=== PATIENT | female | born 1940 | race Caucasian/White ===

== ENCOUNTER 2024-02-02 07:15 | Day surgery (SDC) | payer OTHER, SELFPAY ==
[2024-01-22 10:39] VITALS: BMI 31.9
[2024-02-02] VITALS (12 sets, daily range): BP systolic 141–179; BP diastolic 61–95; BMI 47.4; BMI 31.5
[2024-02-02] MEDS: NSS 500 IV (07:58)
--- NOTE | 2024-02-02 11:11 | ITS.CL.IMPLP ---
Melt Helper - Implant Loop
Implant Loop
Procedure Report:
Date of Procedure: February 02, 2024.
Procedure: Insertable Loop Recorder Explant.
Indication: Loop at the end of service.
Performing physician: Wilian Lambert MD, [facility].
Explant (implanted 08/12/2022): [employer]; [employer], Model# [id number]; Serial# [id number].
Technique: A time out was performed per protocol. The patient was prepped and draped in the usual fashion. Anesthesia was administered by the anesthesia staff. Local anesthetic was applied to the left prepectoral subcutaneous tissue. An incision
was made over the superior aspect of the device. Dissection was carried to the capsule. The capsule was entered. The old device was explanted. The pocket appeared normal. Hemostasis was excellent. The pocket was irrigated saline. The incision was
closed with 4-0 Monocryl suture. The skin was closed with steri-strips. The estimated blood loss was less than 0.5 mL. There were no complications. No fluoroscopy was used.
Conclusion: Uncomplicated insertable loop explantation.
Recommendation: Routine incision care.
cc: Anjel Vásquez MD and Cesar Hidalgo DO.
[2024-02-02] MEDS: TYLENOL 650 MG PO (11:52)
== END 2024-02-02 12:05 | disposition home or self-care (01) ==
LOC: CATH 07:15
PROVIDERS: ATTENDING PHYSICIAN Internal Medicine Cardiovascular Disease; FAMILY PHYSICIAN Family Medicine; OTHER PHYSICIAN Internal Medicine Cardiovascular Disease
DX: Z09 Encounter for follow-up examination after completed treatment for conditions other than malignant neoplasm (principal); I48.0 Paroxysmal atrial fibrillation; I34.0 Nonrheumatic mitral (valve) insufficiency; I10 Essential (primary) hypertension; K21.9 Gastro-esophageal reflux disease without esophagitis; K76.0 Fatty (change of) liver, not elsewhere classified; M06.9 Rheumatoid arthritis, unspecified; Z87.891 Personal history of nicotine dependence; Z86.73 Personal history of transient ischemic attack (TIA), and cerebral infarction without residual deficits; Z79.01 Long term (current) use of anticoagulants
CPT/HCPCS: 33286; 93005

== ENCOUNTER → 2024-05-02 11:52 | Outpatient (REF) | payer OTHER, SELFPAY | LOC: HWRAD 11:52 | PROVIDERS: ATTENDING PHYSICIAN Internal Medicine Rheumatology; FAMILY PHYSICIAN Family Medicine | DX: M06.09 Rheumatoid arthritis without rheumatoid factor, multiple sites (principal) | CPT/HCPCS: 73030 ==

== ENCOUNTER → 2024-11-27 11:35 | Emergency (ER) | payer OTHER, SELFPAY ==
[2024-11-27 11:38] VITALS: BMI 32.6
[2024-11-27 12:00] VITALS: BP 146/62
[2024-11-27 12:02] LABS: % Basophils 0.7 % (0-2); % Eosinophils 1.2 % (0-6); % Immature Granulocytes 0.3 % (0-0.5); % Lymphocytes 12.7 % (20.5-51.1); % Monocytes 10.3 % (1.7-9.3); % Neutrophils 74.8 % (42.2-75.2); Absolute Basophils 0.1 10^3/uL (0-0.2); Absolute Eosinophils 0.1 10^3/uL (0-0.7); Absolute Lymphocytes 1.5 10^3/uL (1.2-3.4); Absolute Monocytes 1.2 10^3/uL (0.1-0.6); Absolute Neutrophils 8.6 10^3/uL (1.4-6.5); Hematocrit 37.3 % (37.0-47.0); Hemoglobin 12.1 g/dL (12.0-16.0); Mean Corp Hgb Conc. 32.4 g/dL (33.0-37.0); Mean Corpuscular Hgb 28.3 pg (27.0-31.0); Mean Corpuscular Volume 87.1 fL (81.0-99.0); Mean Platelet Volume 9.4 fL (7.4-10.4); Nucleated Red Blood Cells % 0 %; Platelet Count 353 10^3/uL (130-400); Red Blood Cell Count 4.28 10^6/uL (4.20-5.40); Red Cell Dist. Width 14.1 % (11.5-14.5); White Blood Cell Count 11.5 10^3/uL (4.8-10.8)
[2024-11-27 12:37] LABS: ALT (SGPT) 13 U/L (0-35); AST (SGOT) 16 U/L (14-36); Alkaline Phosphatase 102 U/L (38-126); Blood Urea Nitrogen 26 mg/dl (7-17); Carbon Dioxide 21 mmol/L (22-30); Chloride 105 mmol/L (98-107); Estimated Creatinine Clearance 47 ml/min; Glucose 137 mg/dl (70-99); Potassium 3.8 mmol/L (3.5-5.1); Sodium 138 mmol/L (135-145); Total Bilirubin 0.7 mg/dl (0.2-1.3); Total Protein 6.6 g/dl (6.3-8.2); eGFR > 60.00
--- NOTE | 2024-11-27 12:44 | ED.GENMED ---
History of Present Illness
General
Chief Complaint: Abdominal Symptoms
Source: patient
Exam Limitations: none
Time Seen by Provider: 11/27/24 11:42
Nursing documentation reviewed up to this point in time: agreed with
History of Present Illness
History of Present Illness:
The patient reports 2 days of lower abdominal pain and intermittent diarrhea. Additionally, she has had nausea and vomiting yesterday but not today. She denies fever. Patient reports she was evaluated by her primary care doctor yesterday to
discuss this abdominal pain and diarrhea and she was encouraged to follow-up with her GI doctor. Patient reports she was at a routine cardiology appointment today and her pure pak machine operator encouraged her to go to the emergency department for possible
dehydration.
Past History
Past History
ED Past Medical History: HTN
ED Past Surgical History: Appendectomy, Gynecological (Tubal) and Orthopedic (His surgery x3)
Social History
Tobacco: Non-smoker
Alcohol: None
Drug: None
Personal:
Living: with family
Employment: Retired
Family History
Family History: Other (Noncontributory)
Review of Systems
Review of Systems
Allergies reviewed?: Yes
All Other Systems: ROS reviewed and negative except as documented in HPI and ROS
Constitutional: Reports no symptoms
EENT: Reports no symptoms
Respiratory: Reports no symptoms
Cardiac: Reports no symptoms
ABD/GI: Reports abdominal pain, nausea, vomiting, diarrhea and pain
: Reports no symptoms
Musculoskeletal: Reports no symptoms
Skin: Reports no symptoms
Neurological: Reports no symptoms
Endocrine: Reports no symptoms
Hematologic/Lymphatic: Reports no symptoms
Psychiatric: Reports no symptoms
Phy Exam
Physical Exam
Physical Exam:
Physical Exam
General: no apparent distress, not acutely ill
Neck: supple. no meningeal signs. normal psoterior pharynx
Heart: s1/s2 regular rate and rhythm, no murmur. equal radial pulses.
Lungs: no acute respiratory distress. clear bilaterally
Abdomen: Soft, nondistended. Mild lower abdominal tenderness. No rebound or guarding. No pulsatile mass. No flank tenderness bilaterally
Neuro: alert and oriented. no focal neurological deficits
Skin: no rash
Psychiatric: well kept. interactive and cooperative
Extremities: no edema. no calf tenderness. negative homans. good distal pulses
Course
Orders/Labs/Results
Orders:
Orders
11/27/24 11:51
CMP [Comprehensive Metabolic Panel] Urgent
Complete Blood Count/With Diff Urgent
11/27/24 12:55
CT Abd/pelvis W Iv Cont Urgent
Comment:
Reason For Exam: lower abdominal pain
11/27/24 13:07
Urinalysis Reflex To Culture Urgent
Date Specimen was Collected: 11/27/24
Time Specimen was Collected: 13:06
Urine Microscopic Reflex Cult Urgent
Urine Culture Urgent
CHAO Source: U
Specimen Description:
Date Specimen was Collected: 11/27/24
Time Specimen was Collected: 13:06
11/27/24 14:01
0.9% Sodium Chloride 500 ml [Nss] 500 ml IV BOLUS
11/27/24 16:07
Sulfamethox./Trimethoprim Ds [Bactrim Ds 800 mg/160 mg] 1 tablet PO NOW STA
Abnormal Lab Results
11/27/24 11/27/24
11:51 13:07
WBC 11.5 H 10^3/uL
(4.8-10.8)
MCHC 32.4 L g/dL
(33.0-37.0)
Absolute Neuts (auto) 8.6 H 10^3/uL
(1.4-6.5)
Absolute Monos (auto) 1.2 H 10^3/uL
(0.1-0.6)
Lymphocytes % 12.7 L %
(20.5-51.1)
Monocytes % 10.3 H %
(1.7-9.3)
Carbon Dioxide 21 L mmol/L
(22-30)
BUN 26 H mg/dl
(7-17)
Glucose 137 H mg/dl
(70-99)
Urine Ketones 1+ A
(Negative)
Urine Bilirubin 1+ A
(Negative)
Leukocyte Esterase Rfl 3+ A
(Negative)
Urine Bacteria (Reflex) Many A
(Negative)
Urine Albumin (Reflex) 3+ A
(Neg - Trace)
11/27/24 11:51
11/27/24 11:51
Vital Signs
Initial and Last Documented VS:
Initial Vital Signs
Pulse Resp Pulse Ox
63 15 98
11/27/24 11:49 11/27/24 11:49 11/27/24 11:49
Last Documented Vital Signs
Pulse Resp BP Pulse Ox
66 14 154/72 87
11/27/24 15:00 11/27/24 15:00 11/27/24 15:00 11/27/24 15:00
MDM/Problems Addressed
Differential Diagnosis Includes:
Acute diverticulitis, acute gastroenteritis, UTI
MDM/Problems Addressed:
Patient presents with acute abdominal pain, diarrhea, nausea, vomiting
Chronic conditions affecting care: HTN
Acute Exacerbation and/or Progression of Chronic Illness:
Patient is acutely hypertensive, however, she is anxious and I feel this is contributing.
Acute Exacerbation and/or Progression of Chronic Illness: HTN
*Radiology
Radiology exam reviewed: radiology read reviewed
*Pulse Oximetry
Patient hypoxic: no
*EKG
Interpreted by ED Provider?: NA
*Audience Development Manager Interpretation
Rate: Audience Development Manager- N/A
*Critical Care Note
Total Time (30-74mins, 75-104mins- exclusive of procedures): Not Applicable
Data Reviewed
Review of Other/Old Records Reveals: Discharge Summary (Discharge summary reviewed from 01/2024 when patient was admitted for presyncope and lightheadedness)
Source: patient
Update Note
Update Note:
Patient remains very well and comfortable appearing. She has not had any nausea, vomiting or diarrhea in the ED.
Patient's urine looks suspicious for UTI. Given she has mild lower abdominal pain, decision made to treat given the symptoms.
ED Attending Note
-
Portions of this chart may have been created with voice recognition software.� Occasional wrong word or��sound alike� substitutions may have occurred due to the inherent limitations of voice recognition software.
Discharge Plan
Departure
Patient Disposition: Home (Routine Discharge)
Date of Disposition: 11/27/24
Time of Disposition: 16:08
Patient with high blood pressure during this ER visit?: Yes
Condition: Good
Covid-19: Not Applicable
Discharge Problem:
Acute UTI
Instructions: Urinary tract infections in adults, BLOOD PRESSURE
Prescriptions:
New
sulfamethoxazole-trimethoprim [Bactrim DS] 800-160 mg tablet
1 tab PO BID Qty: 10 0RF
No Action
leflunomide 20 mg Tablet
20 mg PO DAILY Qty: 0
duloxetine 30 mg Capsule,Delayed Release(Dr/Ec)
30 mg PO DAILY
amlodipine 10 mg Tablet
10 mg PO DAILY
latanoprost 0.005 % drops
1 drp BOTH EYES HS
labetalol 100 mg tablet
100 mg PO BID
therapeutic multivitamin Tablet
1 tab PO DAILY
calcium carbonate 500 mg calcium (1,250 mg) Tablet
500 mg PO DAILY
cholecalciferol (vitamin D3) [Vitamin D3] 50 mcg (2,000 unit) Tablet
50 mcg PO BID
Humira Pen 40 mg/0.8 mL Pen Injector Kit
40 mg SC Q2W
Eliquis 5 mg Tablet
5 mg PO BID
atorvastatin 80 mg tablet
80 mg PO TUFR
Referrals:
Cesar Hidalgo DO [Family Provider] -
Activity Restrictions/Additional Instructions:
Return for persistent vomiting or fever.
Interventions
Interventions:
*Risk Screen - Suicide Last Done: 11/27/24 11:38
*General Assessment Last Done: 11/27/24 11:38
*Neglect/Abuse Screening Last Done: 11/27/24 11:38
*ED- Fall Risk Assessment Last Done: 11/27/24 11:45
*ED COVID-19 Vaccine History Last Done: 11/27/24 11:45
DR-Kxxfry-Uolwgeirgq Assessment Last Done: 11/27/24 11:38
Discharge Date and Time
Print Language: BHUTANESE
[2024-11-27 13:09] VITALS: BP 158/84
[2024-11-27 14:09] VITALS: BP 157/88
[2024-11-27] MEDS: NSS 500 IV (14:10)
[2024-11-27 14:26] LABS: Urine Albumin 3+ (Neg - Trace); Urine Bilirubin 1+ (Negative); Urine Character Clear (Clear); Urine Color Yellow; Urine Glucose Negative (Negative); Urine Ketone 1+ (Negative); Urine Leukocyte 3+ (Negative); Urine Nitrite Negative (Negative); Urine Occult Blood Negative (Negative); Urine Specific Gravity 1.025 (<1.030); Urine Urobilinogen 1+ (Neg - 1+)
[2024-11-27 15:00] VITALS: BP 154/72
[2024-11-27 16:01] LABS: Urine Calcium Oxalate Crystals Present; Urine Mucus Moderate; Urine Squamous Cell 0-2 /LPF (Few)
[2024-11-27 16:02] LABS: Urine Bacteria Many (Negative); Urine Red Blood Cell 0-2 /HPF (0-2)
[2024-11-27] MEDS: BACTRIM DS 800 MG/160 MG 1 TABLET PO (16:43)
== END | disposition home or self-care (01) ==
LOC: EMR 11:35
PROVIDERS: EMERGENCY PHYSICIAN Emergency Medicine; FAMILY PHYSICIAN Family Medicine
DX: R19.7 Diarrhea, unspecified (principal); R11.2 Nausea with vomiting, unspecified; I10 Essential (primary) hypertension; N39.0 Urinary tract infection, site not specified; Z90.49 Acquired absence of other specified parts of digestive tract
CPT/HCPCS: 99284; 96360; 74177; 80053; 81003; 81015; 85025; 87086; Q9967

== ENCOUNTER → 2024-12-26 08:57 | Outpatient (REF) | payer OTHER, SELFPAY | LOC: HWRCS 08:57 | PROVIDERS: ATTENDING PHYSICIAN Internal Medicine Cardiovascular Disease; FAMILY PHYSICIAN Family Medicine | DX: R53.83 Other fatigue (principal); I48.0 Paroxysmal atrial fibrillation; R94.31 Abnormal electrocardiogram [ECG] [EKG] | CPT/HCPCS: 93306 ==

== ENCOUNTER → 2024-12-27 07:44 | Outpatient (REF) | payer OTHER, SELFPAY | LOC: HWRCS 07:44 | PROVIDERS: ATTENDING PHYSICIAN Internal Medicine Cardiovascular Disease; FAMILY PHYSICIAN Family Medicine | DX: R53.83 Other fatigue (principal); I48.0 Paroxysmal atrial fibrillation; R94.31 Abnormal electrocardiogram [ECG] [EKG] | CPT/HCPCS: 78452; 93017; A9500; J2785 ==